=== PATIENT | female | born 1940 ===

== ENCOUNTER 2019-01-03 00:03 | Inpatient (IN) | payer MEDICARE, MEDICAID ==
--- NOTE | 2019-01-03 00:10 | ED PDOC ---
Psych Transfer Clearance - Clearance Statement Clearance Statement: Reviewed vital signs, lab results and transfer papers. Patient clinically stable for psychiatric admission.
[2019-01-03 00:14] VITALS: BMI 21.0
[2019-01-03] MEDS ORDERED: Bismuth Subsalicylate 262 mg/15 ml Sus (240 ml) PO PRN (00:29)
[2019-01-03] MEDS ORDERED: Alum-Mag Hydrox-Simethicone Susp (30 mL) PO PRN (00:29)
[2019-01-03] MEDS ORDERED: Magnesium Hydroxide Susp 30 ml UD PO PRN (00:29)
--- NOTE | 2019-01-03 00:37 | PCM.BM ---
<CatieCarson - Last Filed: 01/03/19 00:34> Treatment Plan Problems - Problems identified on initial assessmt Social Isolation Date Initiated: 01/03/19 Time Initiated: 00:35 Assessment reference: NA Status: Active Self Care Defecit Date Initiated: 01/03/19 Time Initiated: 00:35 Assessment reference: NA Status: Active Hopelessness/Helplessness Date Initiated: 01/03/19 Time Initiated: 00:36 Assessment reference: NA Status: Active Altered Sleep Patterns Date Initiated: 01/03/19 Time Initiated: 00:36 Assessment reference: NA Status: Active Less than Optimal Nutrition Date Initiated: 01/03/19 Time Initiated: 00:36 Assessment reference: NA Status: Active Treatment assets and liabiliti Patient Assests: cooperative, ADL independent, negotiates basic needs Patient Liabilities: live alone, poor support system, relationship conflicts, medical problems, language/speech - Milieu Protocol Maintain good personal hygiene: daily Encourage regular showers, daily Remind patient to perform daily oral care, daily Assist patient to perform ADL's Maintain personal safety: every shift Educate patient to report safety concerns to staff, every shift Monitor environment for contraband/sharps Medication safety: Monitor for expected outcome, potential side effects: every shift, Assess barriers to learning: every shift, Assess readiness for medication education: every shift <Clarisse Peña - Last Filed: 01/03/19 11:36> - Diagnosis (1) Major depressive disorder Status: Acute Interventions: Medication management, Individual and group therapy, Psychoeducation 01/03/19 11:36 (2) Generalized anxiety disorder Status: Acute Interventions: Medication management, Individual and group therapy, Psychoeducation 01/03/19 11:36 <Elver King - Last Filed: 01/04/19 16:49> Family Contact Family involvement: Family/SO is involved Family contact: Patient agrees to contact, Family has been contacted by patient, Telephone contact initiated by staff Family contact name: Angela Arroyo - Daughter Family contacted how many times per week?: 2 Family contact comment: Supervisor Adult Education spoke with pt's daughter, Angela Arroyo [phone], to give her updates on pt care. Supervisor Adult Education explained medication changes and that memory deficits were found during psych testing. Supervisor Adult Education provided education on memory loss and the addition of Aricept. Angela explained that she calls pt every day and that her and her siblings attempt to be there for pt but pt will often complain that they are in her way. Angela asked if more homecare hours can be provided and business writer explained process and that a script will be sent over. Angela asked that Dr. Peña call her on 01/07/19 and she reported that she and other children will visit pt on 01/05 and bring clothes. - Goals for Treatment Patient goals for treatment: Pt reported she would like to be placed on medicatins to better manage her anxiety and depression. Pt would like staff to petition for more homecare hours. Discharge/Continuing Care - Education Needs Education Needs: Family Medication, Family Diagnosis/Disease Process, Family Coping Skills, Family Community resources, Family Aftercare Safety Plan, Patient Medication, Patient Diagnosis/Disease Process, Patient Coping Skills, Patient Community resources, Patient Aftercare Safety Plan - Discharge Discharge Criteria: Tolerates medication w/o severe side effects, Free of Suicidal thoughts, Ability to care for self, Reduction of target symptoms Discharge to:: Home - Treatment Team Participation Patient/Family/SO Statement: 01/04/19 16:45 Pt seen in treatment team on 01/04/19. Pt reported she feels a "little better." Pt verbalized increased depression and anxiety over the last several months due to loneliness and abandonment by her children. Pt reported that she needs more help at home and only has a homemaker for 2 hours. Pt seen by Dr. Moe and memory issues were noted. This was discussed with pt and pt will be started on Aricept. Pt was tearful throughout the assessment. Pt denied current SI/HI and AVT hallucinations. Pt is oriented X4. Discussed with Family/SO: Yes Was Patient/Family/SO present at Treatment Team Meeting: Yes
[2019-01-03 06:45] LABS: HEMOGLOBIN 13.6 g/dL (12.0-16.0); MEAN CELL VOLUME 92.1 fl (81.0-99.0); MEAN CORPUSCULAR HEMOGLOBIN 30.9 pg (27.0-31.0); MEAN CORPUSCULAR HGB CONC 33.6 g/dL (33.0-37.0); RBC 4.39 Mil/uL (3.80-5.20); RED CELL DISTRIBUTION WIDTH 14.2 % (11.5-14.5); WHITE BLOOD COUNT 5.2 K/uL (4.8-10.8)
[2019-01-03 06:52] LABS: ALB/GLOB RATIO 1.3 (1.0-2.1); ALBUMIN 4.6 g/dL (3.5-5.0); ALT/SGPT 24 U/L (9-52); AST/SGOT 27 U/L (14-36); BLOOD UREA NITROGEN 13 mg/dl (7-17); CALCIUM 9.8 mg/dL (8.4-10.2); GFR NON-AFRICAN AMERICAN > 60; HDL CHOLESTEROL 76 MG/DL (30-70)
[2019-01-03 07:04] LABS: LDL CHOLESTEROL 126 mg/dL (0-129)
[2019-01-03 07:09] LABS: IRON 83 ug/dL (37-170)
[2019-01-03 07:19] LABS: % IRON SATURATION 30 % (20-55); TOTAL IRON BINDING CAPACITY 280 ug/dL (250-450)
[2019-01-03 07:27] LABS: FERRITIN 45.3 ng/Ml (11.1-264.0)
--- NOTE | 2019-01-03 11:31 | PCM.PSYCH ---
Initial Psychiatric Evaluation - Initial Psychiatric Evaluation Type of Admission: Voluntary Legal Status: Capacity Chief Complaint (in patient's own words): Depression/Anxiety Patient's Reaction to Hospitalization: HPI: 78 yo female w/ h/o depression and anxiety, presents w/ worsening depression, worsening anxiety, low energy, poor concentration, memory loss, excessive crying, poor sleep/appetite. She denies acute AH/VH/SI/HI. PPHx: History of depression and anxiety; h/o of prior psychiatric admissions, but patient is a poor historian; no current outpatient psychiatric treatment PMHx: HLD, Constipation, GERD ALL: NKDA SHx: From NH; +7 children; no drugs/etoh/cig FHx: Sister w/ depression Current Medications: Active Medications Generic Name Dose Route Start Last Admin Trade Name Freq PRN Reason Stop Dose Admin Acetaminophen 650 mg 01/03/19 00:29 Tylenol 325mg Tab PO Q4 PRN Pain, moderate (4-7) Al Hydrox/Mg Hydrox/Simethicone 30 ml 01/03/19 00:29 Maalox Plus 30 Ml PO Q4 PRN Dyspepsia Baclofen 10 mg 01/03/19 11:23 Lioresal PO DAILY PRN Muscle spasm Bismuth Subsalicylate 524 mg 01/03/19 00:29 Pepto-Bismol PO Q4 PRN Diarrhea Home Med 20 mg 01/03/19 17:00 Omeprazole [Omeprazole] PO BID [facility] Lorazepam 0.5 mg 01/03/19 00:29 01/03/19 01:10 Ativan PO 01/17/19 00:30 0.5 mg HS PRN Administration Insomnia Lorazepam 0.5 mg 01/03/19 00:29 Ativan PO 01/17/19 00:30 Q6 PRN Anixety/Agitation Magnesium Hydroxide 30 ml 01/03/19 00:29 Milk Of Magnesia PO HS PRN Constipation Past Psychiatric History - Past Psychiatric History Previous Treatment History: Inpatient Pertinent Medical Hx (Current Medical&Sleep Prob, Allergies): Allergies Allergy/AdvReac Type Severity Reaction Status Date / Time No Known Allergies Allergy Verified 06/13/15 16:32 Rosuvastatin Calcium [Crestor] 20 mg PO HS 05/04/15 Zolpidem Tartrate [Ambien] 10 mg PO HS 05/04/15 Mirtazapine [Remeron] 15 mg PO HS #0 tab 06/19/15 clonazePAM [Klonopin] 0.5 mg PO TID #0 tab 06/19/15 traZODone [Desyrel] 100 mg PO HS #0 tab 06/19/15 Levocetirizine Dihydrochloride [Xyzal] 5 mg PO DAILY 06/06/17 Lorazepam [Ativan] 0.5 mg PO BID 06/06/17 Nitrofurantoin Macrocrystals [Macrobid] 100 mg PO BID #20 cap 06/06/17 Omeprazole 20 mg PO BID 06/06/17 Review of Systems - Psychiatric Psychiatric: As Per HPI, Abnormal Sleep Pattern, Anhedonia, Anxiety, Change in Appetite, Depression, Difficulty Concentrating, Hopelessness, Irritability, Memory Loss Mental Status Examination - Personal Presentation Personal Presentation: Looks stated age - Affect Affect: Constricted, Depressed - Motor Activity Motor Activity: Calm - Reliability in Providing Information Reliability in Providing Information: Poor, due to cognitve impairment - Speech Speech: Coherent - Mood Mood: Depressed, Anxious - Formal Thought Process Formal Thought Process: No Impairment - Hallucinations/Delusions Additional comments: No AH/VH/paranoia - Obsessions/Compulsions Obsessions: No Compulsions: No - Cognitive Functions Orientation: Person, Place, Situation, Time Sensorium: Alert Judgement: Intact, as evidence by: Insight regarding need for hospitalization Memory: Recent intact, as evidence by: Ability to recall events of the day - Risk Risk: Diminished functioning - Strength & Assets Inventory Strength & Assets Inventory: Family support, Cooperative - Limitations Limitations: Living alone, Decreased memory, recent DSM 5 DX - DSM 5 DSM 5 Diagnosis: Major Depressive Disorder; Generalized Anxiety Disorder; r/o Major Neurocognitive Disorder - Recommended/Plan of Treatment Treatment Recommendations and Plan of Treatment: Major Depressive Disorder; Generalized Anxiety Disorder; r/o Major Neurocognitive Disorder -Admit to psychiatry unit -Individual and group therapy -Psychoeducation -Medicine consult -Start Remeron 7.5 mg PO HS -Ativan 0.5 mg PO PRN anxiety -Disposition planning Projected ELOS: 5-8 days Discharge Plan and Discharge Criteria: Discharge when patient is psychiatrically stable - Smoking Cessation Smoking Cessation Initiated: No Reason for not providing: Patient does not smoke
--- NOTE | 2019-01-03 11:53 | CP.PCM.CON ---
<Nyla Gutiérrez - Last Filed: 01/03/19 13:12> History of Present Illness - History of Present Illness History of Present Illness: Medicine consult note 78 yo female with history of depression, anxiety, chronic constipation, HLD and GERD admitted to [facility] for Major Depressive Disorder and Generalized Anxiety Disorder. Patient is a poor historian. She reports she was brought in because she has severe panic attacks and needed to be hospitalized. She denies any other complaints. Denies chest pain, dypsnea, nausea, vomiting, abdominal pain, diarrhea, dysuria, frequency, urgency. Denies SI/HI. ROS: negative except for stated above in HPI. Medical history: depression, anxiety, HLD, Constipation, GERD Allergies: NKDA Family history: Sister with anxiety and depression. Father and brother from Lung cancer (unknown age of diagnosis or whether they were smokers). Social history: Denies alcohol use, smoking history or illicit drug use. Review of Systems - Constitutional Constitutional: absent: Chills, Fatigue, Fever, Weight Loss - Cardiovascular Cardiovascular: absent: Chest Pain, Chest Pain at Rest, Chest Pain with Activity, Dyspnea, Leg Edema - Respiratory Respiratory: absent: Cough, Dyspnea, Dyspnea on Exertion, Wheezing, Chest Congestion - Gastrointestinal Gastrointestinal: Constipation (chronic constipation (last BM this morning)). absent: Abdominal Pain, Change in Bowel Habits, Diarrhea, Nausea, Vomiting - Genitourinary Genitourinary: absent: Dysuria, Nocturia, Urinary Incontinence, Urinary Frequency, Urinary Urgency Past Patient History - Infectious Disease Hx of Infectious Diseases: None - Past Medical History & Family History Past Medical History?: Yes - Past Social History Smoking Status: Never Smoked - CARDIAC Hx Hypercholesterolemia: Yes Hx Hypertension: No - PULMONARY Hx Tuberculosis: No - NEUROLOGICAL Hx Neurological Disorder: No Hx Seizures: No - HEENT Hx HEENT Problems: No - RENAL Hx Chronic Kidney Disease: No - ENDOCRINE/METABOLIC Hx Endocrine Disorders: No - HEMATOLOGICAL/ONCOLOGICAL Hx Blood Disorders: No Hx Anemia: No Hx Human Immunodeficiency Virus (HIV): No - INTEGUMENTARY Hx Dermatological Problems: No - MUSCULOSKELETAL/RHEUMATOLOGICAL Hx Musculoskeletal Disorders: Yes Hx Falls: No Hx Osteoporosis: Yes - GASTROINTESTINAL Hx Gastrointestinal Disorders: Yes Hx Constipation: Yes Hx Diverticulitis: Yes Hx Gastritis: Yes - GENITOURINARY/GYNECOLOGICAL Hx Genitourinary Disorders: No Hx Sexually Transmitted Disorders: No - PSYCHIATRIC Hx Anxiety: Yes Hx Depression: Yes Hx Physical Abuse: No Hx Sexual Abuse: No Hx Substance Use: No - SURGICAL HISTORY Hx Surgeries: Yes Hx Cholecystectomy: Yes Hx Tonsillectomy: Yes - ANESTHESIA Hx Anesthesia: Yes Hx Anesthesia Reactions: No Meds Allergies/Adverse Reactions: Allergies Allergy/AdvReac Type Severity Reaction Status Date / Time No Known Allergies Allergy Verified 06/13/15 16:32 - Medications Medications: Current Medications Acetaminophen (Tylenol 325mg Tab) 650 mg PO Q4 PRN PRN Reason: Pain, moderate (4-7) Al Hydrox/Mg Hydrox/Simethicone (Maalox Plus 30 Ml) 30 ml PO Q4 PRN PRN Reason: Dyspepsia Baclofen (Lioresal) 10 mg PO DAILY PRN PRN Reason: Muscle spasm Bismuth Subsalicylate (Pepto-Bismol) 524 mg PO Q4 PRN PRN Reason: Diarrhea Lorazepam (Ativan) 0.5 mg PO HS PRN PRN Reason: Insomnia Stop: 01/17/19 00:30 Last Admin: 01/03/19 01:10 Dose: 0.5 mg Lorazepam (Ativan) 0.5 mg PO Q6 PRN PRN Reason: Anixety/Agitation Stop: 01/17/19 00:30 Magnesium Hydroxide (Milk Of Magnesia) 30 ml PO HS PRN PRN Reason: Constipation Mirtazapine (Remeron) 7.5 mg PO HS EDWARD Pantoprazole Sodium (Protonix Ec Tab) 40 mg PO DAILY [facility] Physical Exam - Constitutional Appears: Non-toxic, No Acute Distress - Eye Exam Eye Exam: Normal appearance - ENT Exam ENT Exam: Mucous Membranes Moist - Respiratory Exam Respiratory Exam: Clear to Auscultation Bilateral, NORMAL BREATHING PATTERN. absent: Accessory Muscle Use, Chest Wall Tenderness, Decreased Breath Sounds, Prolonged Expiratory Phase, Rales, Rhonchi, Wheezes, Respiratory Distress, Stridor - Cardiovascular Exam Cardiovascular Exam: REGULAR RHYTHM, +S1, +S2 - GI/Abdominal Exam GI & Abdominal Exam: Normal Bowel Sounds, Soft. absent: Diminished Bowel Sounds, Distended, Firm, Mass, Rebound, Rigid, Tenderness - Back Exam Back exam: NORMAL INSPECTION - Neurological Exam Neurological exam: Alert, Oriented x3 - Psychiatric Exam Psychiatric exam: Normal Affect - Skin Skin Exam: Dry, Intact, Normal Color, Warm Results - Vital Signs Recent Vital Signs: Last Vital Signs Temp 98.1 F 01/03/19 06:00 Pulse 89 01/03/19 06:00 Resp 18 01/03/19 06:00 BP 131/75 01/03/19 06:00 Pulse Ox 99 01/03/19 00:05 - Labs Result Diagrams: 01/03/19 06:36 01/03/19 06:36 Labs: Laboratory Results - last 24 hr 01/03/19 01/03/19 01/03/19 06:36 06:36 06:36 WBC 5.2 RBC 4.39 Hgb 13.6 Hct 40.4 MCV 92.1 MCH 30.9 MCHC 33.6 RDW 14.2 Plt Count 249 Sodium 141 Potassium 4.2 Chloride 103 Carbon Dioxide 28 Anion Gap 14 BUN 13 Creatinine 0.6 L Est GFR ( Amer) > 60 Est GFR (Non-Af Amer) > 60 Random Glucose 83 Hemoglobin A1c Calcium 9.8 Iron 83 TIBC 280 % Saturation 30 Ferritin 45.3 Total Bilirubin 0.7 AST 27 ALT 24 Alkaline Phosphatase 126 Total Protein 8.2 Albumin 4.6 Globulin 3.6 Albumin/Globulin Ratio 1.3 Triglycerides 68 Cholesterol 235 H LDL Cholesterol Direct 126 HDL Cholesterol 76 H Vitamin B12 317 Free T4 Thyroxine (T4) 11.5 H TSH 3rd Generation 3.14 01/03/19 01/03/19 06:36 06:36 WBC RBC Hgb Hct MCV MCH MCHC RDW Plt Count Sodium Potassium Chloride Carbon Dioxide Anion Gap BUN Creatinine Est GFR ( Amer) Est GFR (Non-Af Amer) Random Glucose Hemoglobin A1c 5.6 Calcium Iron TIBC % Saturation Ferritin Total Bilirubin AST ALT Alkaline Phosphatase Total Protein Albumin Globulin Albumin/Globulin Ratio Triglycerides Cholesterol LDL Cholesterol Direct HDL Cholesterol Vitamin B12 Free T4 1.28 Thyroxine (T4) TSH 3rd Generation Assessment & Plan - Assessment and Plan (Free Text) Assessment: 78 yo female with history of depression, anxiety, chronic constipation, HLD and GERD admitted to [facility] for Major Depressive Disorder and Generalized Anxiety Disorder. Plan: Major Depressive Disorder; Generalized Anxiety Disorder - Hemodynamically stable - medically stable - C/W home medications - Continue with psychiatric management. <Martha Abarca - Last Filed: 01/04/19 18:52> Meds - Medications Medications: Current Medications Acetaminophen (Tylenol 325mg Tab) 650 mg PO Q4 PRN PRN Reason: Pain, moderate (4-7) Al Hydrox/Mg Hydrox/Simethicone (Maalox Plus 30 Ml) 30 ml PO Q4 PRN PRN Reason: Dyspepsia Baclofen (Lioresal) 10 mg PO DAILY PRN PRN Reason: Muscle spasm Bismuth Subsalicylate (Pepto-Bismol) 524 mg PO Q4 PRN PRN Reason: Diarrhea Donepezil HCl (Aricept) 5 mg PO HS [facility] Lorazepam (Ativan) 0.5 mg PO HS PRN PRN Reason: Insomnia Stop: 01/17/19 00:30 Last Admin: 01/03/19 01:10 Dose: 0.5 mg Lorazepam (Ativan) 0.5 mg PO Q6 PRN PRN Reason: Anixety/Agitation Stop: 01/17/19 00:30 Magnesium Hydroxide (Milk Of Magnesia) 30 ml PO HS PRN PRN Reason: Constipation Mirtazapine (Remeron) 7.5 mg PO [facility] Last Admin: 01/03/19 21:25 Dose: 7.5 mg Pantoprazole Sodium (Protonix Ec Tab) 40 mg PO DAILY [facility] Last Admin: 01/04/19 08:16 Dose: 40 mg Senna/Docusate Sodium (Senokot S 50 Mg-8.6 Mg) 1 tab PO [facility] Results - Vital Signs Recent Vital Signs: Last Vital Signs Temp 97.6 F 01/04/19 15:56 Pulse 89 01/04/19 15:56 Resp 18 01/04/19 15:56 BP 115/68 01/04/19 15:56 Pulse Ox 99 01/03/19 00:05 - Labs Result Diagrams: 01/03/19 06:36 01/03/19 06:36 Labs: Laboratory Results - last 24 hr 01/04/19 07:00 Urine Color Straw Urine Clarity Clear Urine pH 6.0 Ur Specific [place] 1.009 Urine Protein Negative Urine Glucose (UA) Neg Urine Ketones Negative Urine Blood Small Urine Nitrate Negative Urine Bilirubin Negative Urine Urobilinogen 0.2-1.0 Ur Leukocyte Esterase Trace Urine RBC (Auto) 4 H Urine Microscopic WBC 5 Ur Squamous Epith Cells < 1 Urine Bacteria Rare Attending/Attestation - Attestation I have personally seen and examined this patient.: Yes I have fully participated in the care of the patient.: Yes I have reviewed all pertinent clinical information: Yes Notes (Text): Agree with findings and plan as above.
[2019-01-03 12:20] LABS: FOLATE > 20.0 ng/mL
[2019-01-03] MEDS: Pantoprazole 40 mg EC Tab PO SCH (17:07)
[2019-01-04 08:12] LABS: SQUAMOUS EPITHIAL < 1 /hpf (0-5); URINE BACTERIA RARE (<OCC); URINE BILIRUBIN NEGATIVE (NEGATIVE); URINE BLOOD SMALL (NEGATIVE); URINE CLARITY CLEAR (Clear); URINE COLOR STRAW (YELLOW); URINE GLUCOSE (UA) NEG (NEGATIVE); URINE LEUKOCYTE ESTERASE TRACE Leu/uL (Negative); URINE PROTEIN NEGATIVE (NEGATIVE); URINE UROBILINOGEN 0.2-1.0 mg/dL (0.2-1.0)
[2019-01-04] MEDS: Pantoprazole 40 mg EC Tab PO SCH (08:16)
--- NOTE | 2019-01-04 09:38 | CP.PCM.CON ---
History of Present Illness - History of Present Illness History of Present Illness: Pt is a 78 year old female admitted to [facility] and referred to the pattern chart writer for evaluation. On the Dementia Rating Scale, pt scored an overall score of 111. Pt scored within normal limits on Attention, and Construction tasks. Pt's Conceptualization, Memory, and Initiation skills all fell in the Deficient Range. With improvement in her psychiatric status, pt's performance is likely to improve to some degree. Deficits noted on this evaluation Overall 111 Attention 34 within normal limits Construction 5 within normal limits Conceptualization 31 deficient Memory 14 deficient Initation 27 deficient Past Patient History - Infectious Disease Hx of Infectious Diseases: None - Past Medical History & Family History Past Medical History?: Yes - Past Social History Smoking Status: Never Smoked - CARDIAC Hx Hypercholesterolemia: Yes Hx Hypertension: No - PULMONARY Hx Tuberculosis: No - NEUROLOGICAL Hx Neurological Disorder: No Hx Seizures: No - HEENT Hx HEENT Problems: No - RENAL Hx Chronic Kidney Disease: No - ENDOCRINE/METABOLIC Hx Endocrine Disorders: No - HEMATOLOGICAL/ONCOLOGICAL Hx Blood Disorders: No Hx Anemia: No Hx Human Immunodeficiency Virus (HIV): No - INTEGUMENTARY Hx Dermatological Problems: No - MUSCULOSKELETAL/RHEUMATOLOGICAL Hx Musculoskeletal Disorders: Yes Hx Falls: No Hx Osteoporosis: Yes - GASTROINTESTINAL Hx Gastrointestinal Disorders: Yes Hx Constipation: Yes Hx Diverticulitis: Yes Hx Gastritis: Yes - GENITOURINARY/GYNECOLOGICAL Hx Genitourinary Disorders: No Hx Sexually Transmitted Disorders: No - PSYCHIATRIC Hx Anxiety: Yes Hx Depression: Yes Hx Physical Abuse: No Hx Sexual Abuse: No Hx Substance Use: No - SURGICAL HISTORY Hx Surgeries: Yes Hx Cholecystectomy: Yes Hx Tonsillectomy: Yes - ANESTHESIA Hx Anesthesia: Yes Hx Anesthesia Reactions: No Meds Allergies/Adverse Reactions: Allergies Allergy/AdvReac Type Severity Reaction Status Date / Time No Known Allergies Allergy Verified 06/13/15 16:32 - Medications Medications: Current Medications Acetaminophen (Tylenol 325mg Tab) 650 mg PO Q4 PRN PRN Reason: Pain, moderate (4-7) Al Hydrox/Mg Hydrox/Simethicone (Maalox Plus 30 Ml) 30 ml PO Q4 PRN PRN Reason: Dyspepsia Baclofen (Lioresal) 10 mg PO DAILY PRN PRN Reason: Muscle spasm Bismuth Subsalicylate (Pepto-Bismol) 524 mg PO Q4 PRN PRN Reason: Diarrhea Lorazepam (Ativan) 0.5 mg PO HS PRN PRN Reason: Insomnia Stop: 01/17/19 00:30 Last Admin: 01/03/19 01:10 Dose: 0.5 mg Lorazepam (Ativan) 0.5 mg PO Q6 PRN PRN Reason: Anixety/Agitation Stop: 01/17/19 00:30 Magnesium Hydroxide (Milk Of Magnesia) 30 ml PO HS PRN PRN Reason: Constipation Mirtazapine (Remeron) 7.5 mg PO HS [facility] Last Admin: 01/03/19 21:25 Dose: 7.5 mg Pantoprazole Sodium (Protonix Ec Tab) 40 mg PO DAILY [facility] Last Admin: 01/04/19 08:16 Dose: 40 mg Results - Vital Signs Recent Vital Signs: Last Vital Signs Temp 97.1 F L 01/04/19 06:00 Pulse 76 01/04/19 06:00 Resp 19 01/04/19 06:00 BP 132/74 01/04/19 06:00 Pulse Ox 99 01/03/19 00:05 - Labs Result Diagrams: 01/03/19 06:36 01/03/19 06:36 Labs: Laboratory Results - last 24 hr 01/03/19 01/03/19 01/03/19 06:36 06:36 06:36 Hemoglobin A1c 5.6 Folate > 20.0 Urine Color Urine Clarity Urine pH Ur Specific [place] Urine Protein Urine Glucose (UA) Urine Ketones Urine Blood Urine Nitrate Urine Bilirubin Urine Urobilinogen Ur Leukocyte Esterase Urine RBC (Auto) Urine Microscopic WBC Ur Squamous Epith Cells Urine Bacteria RPR Nonreactive 01/04/19 07:00 Hemoglobin A1c Folate Urine Color Straw Urine Clarity Clear Urine pH 6.0 Ur Specific [place] 1.009 Urine Protein Negative Urine Glucose (UA) Neg Urine Ketones Negative Urine Blood Small Urine Nitrate Negative Urine Bilirubin Negative Urine Urobilinogen 0.2-1.0 Ur Leukocyte Esterase Trace Urine RBC (Auto) 4 H Urine Microscopic WBC 5 Ur Squamous Epith Cells < 1 Urine Bacteria Rare RPR
--- NOTE | 2019-01-04 10:23 | PCM.PYCHPN ---
Psychiatric Progress Note - Psychiatric Progress Note Patient seen today, length of contact: Pt evaluated, case discussed w/ team, chart reviewed Patient Chief Complaint: Depression/Anxiety Problems Identified/Issues Discussed: Patient continues to be depressed, anxious and intermittently feels hopeless. She was tearful on evaluation. She realizes that she has memory deficits. Medication Change: Yes (Start Aricept) Medical Record Reviewed: Yes Consults ordered or reviewed: Medicine consult Psychology consult Pt is a 78 year old female admitted to [facility] and referred to the food writer for evaluation. On the Dementia Rating Scale, pt scored an overall score of 111. Pt scored within normal limits on Attention, and Construction tasks. Pt's Conceptualization, Memory, and Initiation skills all fell in the Deficient Range. With improvement in her psychiatric status, pt's performance is likely to improve to some degree. Deficits noted on this evaluation Overall 111 Attention 34 within normal limits Construction 5 within normal limits Conceptualization 31 deficient Memory 14 deficient Initation 27 deficient Mental Status Examination - Cognitive Function Orientation: Person, Place, Situation, Time Memory: Impaired - Mood Mood: Depressed, Anxious - Affect Affect: Constricted, Depressed - Formal Thought Process Formal Thought Process: No Impairment Psychotic Thoughts and Behaviors: No AH/VH/paranoia/delusions - Suicidal Ideation Suicidal Ideation: No - Homicidal Ideation Homicidal Ideation: No Goal/Treatment Plan - Goal/Treatment Plan Need for Continued Stay: Severe depression anxiety, Severe functional impairment Progress Toward Problem(s) and Goals/Treatment Plan: Major Depressive Disorder; Generalized Anxiety Disorder; Major Neurocognitive Disorder -Individual and group therapy -Psychoeducation -Medicine consult -Continue Remeron 7.5 mg PO HS -Start Aricept 5 mg PO HS -Ativan 0.5 mg PO PRN anxiety -Disposition planning Estimated Date of D/C: 01/08/19
[2019-01-04] MEDS ORDERED: Bisacodyl 5mg EC Tab PO ONE (11:03)
[2019-01-04] MEDS: Docusate-Senna 50 mg-8.6 mg Tab PO SCH (22:02)
[2019-01-05] MEDS: Pantoprazole 40 mg EC Tab PO SCH (09:13)
--- NOTE | 2019-01-05 12:37 | PCM.PYCHPN ---
Psychiatric Progress Note - Psychiatric Progress Note Patient seen today, length of contact: Pt evaluated, case discussed w/ team, chart reviewed Patient Chief Complaint: was feeling nervous/depressed come changes in memory Problems Identified/Issues Discussed: alteration in mood alteration in cognition alteration in self care Medical Problems: per chart Diagnostic Results: per psychiatry, medicine, nursing, social work, recreational therapy DSM 5 Symptoms Update: some improvement mood started on aricept some impairment in memory Medication Change: No Medical Record Reviewed: Yes Consults ordered or reviewed: hospitalist, dr jaimes/psychologist Mental Status Examination - Cognitive Function Orientation: Person, Place, Situation, Time Memory: Impaired Decription of patient's judgement and insights: impaired - Mood Mood: Depressed, Anxious - Affect Affect: Constricted, Depressed - Formal Thought Process Formal Thought Process: No Impairment - Suicidal Ideation Suicidal Ideation: No - Homicidal Ideation Homicidal Ideation: No Goal/Treatment Plan - Goal/Treatment Plan Need for Continued Stay: Severe depression anxiety, Severe functional impairment Progress Toward Problem(s) and Goals/Treatment Plan: inpt milieu vital signs/clinical observation per protocol and per clinical status discharge planning in progress Estimated Date of D/C: 01/08/19 - Smoking Cessation Smoking Cessation Initiated: No Reason for not providing: pt defers
[2019-01-05] MEDS: Docusate-Senna 50 mg-8.6 mg Tab PO SCH (21:21)
[2019-01-06] MEDS: Pantoprazole 40 mg EC Tab PO SCH (09:03)
[2019-01-06 16:45] VITALS: O2SAT 98
--- NOTE | 2019-01-06 17:14 | PCM.PYCHPN ---
Psychiatric Progress Note - Psychiatric Progress Note Patient seen today, length of contact: Pt evaluated, case discussed w/ team, chart reviewed Patient Chief Complaint: was feeling nervous/depressed come changes in memory Problems Identified/Issues Discussed: alteration in mood alteration in cognition alteration in self care Medical Problems: per chart Diagnostic Results: per psychiatry, medicine, nursing, social work, recreational therapy DSM 5 Symptoms Update: improving mood denie side effects medication Medication Change: No Medical Record Reviewed: Yes Consults ordered or reviewed: pt being followed by medical team Mental Status Examination - Cognitive Function Orientation: Person, Place, Situation, Time Memory: Impaired Decription of patient's judgement and insights: impaired - Mood Mood: Depressed, Anxious - Affect Affect: Constricted, Depressed - Formal Thought Process Formal Thought Process: No Impairment - Suicidal Ideation Suicidal Ideation: No - Homicidal Ideation Homicidal Ideation: No Goal/Treatment Plan - Goal/Treatment Plan Need for Continued Stay: Severe depression anxiety, Severe functional impairment Progress Toward Problem(s) and Goals/Treatment Plan: inpt milieu vital signs/clinical observation per protocol and per clinical status adjust meds per clinical status start namenda 5mg po 1700 discharge planning in progress Estimated Date of D/C: 01/08/19 - Smoking Cessation Smoking Cessation Initiated: No
[2019-01-06] MEDS: Docusate-Senna 50 mg-8.6 mg Tab PO SCH (21:18)
[2019-01-07] MEDS: Pantoprazole 40 mg EC Tab PO SCH (08:57)
--- NOTE | 2019-01-07 11:27 | PCM.PYCHPN ---
Psychiatric Progress Note - Psychiatric Progress Note Patient seen today, length of contact: Pt evaluated, case discussed w/ team, chart reviewed Patient Chief Complaint: Depression/Anxiety Problems Identified/Issues Discussed: Patient reports that she feels less anxious and depressed. She feels more hopeful. She reports improved sleep/appetite. Obstetric Anaesthetist spoke with patient's daughter Angela Arroyo ([phone]); Treatment plan and medications reviewed. Psychoeducation provided on dementia. Medication Change: No Medical Record Reviewed: Yes Consults ordered or reviewed: Medicine consult Psychology consult Pt is a 78 year old female admitted to [facility] and referred to the telegraphic typewriter operator chief for evaluation. On the Dementia Rating Scale, pt scored an overall score of 111. Pt scored within normal limits on Attention, and Construction tasks. Pt's Conceptualization, Memory, and Initiation skills all fell in the Deficient Range. With improvement in her psychiatric status, pt's performance is likely to improve to some degree. Deficits noted on this evaluation Overall 111 Attention 34 within normal limits Construction 5 within normal limits Conceptualization 31 deficient Memory 14 deficient Initation 27 deficient Mental Status Examination - Cognitive Function Orientation: Person, Place, Situation, Time Memory: Impaired Decription of patient's judgement and insights: Improving I/J - Mood Mood: Anxious - Affect Affect: Constricted - Speech Speech: Appropriate - Formal Thought Process Formal Thought Process: No Impairment Psychotic Thoughts and Behaviors: No AH/VH/paranoia/delusions - Suicidal Ideation Suicidal Ideation: No - Homicidal Ideation Homicidal Ideation: No Goal/Treatment Plan - Goal/Treatment Plan Need for Continued Stay: Severe depression anxiety Progress Toward Problem(s) and Goals/Treatment Plan: Major Depressive Disorder; Generalized Anxiety Disorder; Major Neurocognitive Disorder -Individual and group therapy -Psychoeducation -Medicine consult -Continue Remeron, Aricept and Namenda -Disposition planning- likely discharge tomorrow as patient is improving clinically Estimated Date of D/C: 01/08/19
[2019-01-07] MEDS: Docusate-Senna 50 mg-8.6 mg Tab PO SCH (21:09)
[2019-01-08 06:07] VITALS: RESP 18
[2019-01-08] MEDS: Pantoprazole 40 mg EC Tab PO SCH (08:38)
--- NOTE | 2019-01-08 12:15 | PCM.PYCHDC ---
Mental Status Examination - Mental Status Examination Orientation: Person, Place, Situation, Time Memory: Impaired Mood: Neutral Affect: Broad Speech: Appropriate Attention: WNL Concentration: WNL Association: WNL Fund of Knowledge: WNL Formal Thought Process: No Impairment Description of patient's judgement and insight: Fair I/J Psychotic Thoughts and Behaviors: No AH/VH/paranoia/delusions Suicidal Ideation: No Current Homicidal Ideation?: No Discharge Summary - Discharge Note Reason for Hospitalization: HPI: 78 yo female w/ h/o depression and anxiety, presents w/ worsening depression, worsening anxiety, low energy, poor concentration, memory loss, excessive crying, poor sleep/appetite. She denies acute AH/VH/SI/HI. PPHx: History of depression and anxiety; h/o of prior psychiatric admissions, but patient is a poor historian; no current outpatient psychiatric treatment PMHx: HLD, Constipation, GERD ALL: NKDA SHx: From [place]; +7 children; no drugs/etoh/cig FHx: Sister w/ depression Consultations:: List each consultation separately and include: 1. Reason for request. 2. Findings. 3. Follow-up Consultations: Medicine consult Psychology consult Pt is a 78 year old female admitted to [facility] and referred to the newspaper writer for evaluation. On the Dementia Rating Scale, pt scored an overall score of 111. Pt scored within normal limits on Attention, and Construction tasks. Pt's Conceptualization, Memory, and Initiation skills all fell in the Deficient Range. With improvement in her psychiatric status, pt's performance is likely to improve to some degree. Deficits noted on this evaluation Overall 111 Attention 34 within normal limits Construction 5 within normal limits Conceptualization 31 deficient Memory 14 deficient Initation 27 deficient Summary of Hospital Course include:: 1. Description of specific treatment plan utilized for patients during their course of treatmen. 2. Summarize the time- course for resolution of acute symptoms and/or regressed behaviors. 3. Describe issues identified and worked on during hospitalization. 4. Describe medication utilized. 5. Describe medical problems identified and treated. 6. Reassessment of suicide risk Summary of Hospital Course: Patient was admitted to the psychiatry unit. Individual and group therapy were provided. Patient was stabilized on Remeron, Aricept and Namenda. Psychoeducation provided to the patient and her family. She denies acute depression/anxiety/AH/VH/SI/HI. She is psychiatrically stable for discharge at this time. - Diagnosis (1) Major depressive disorder Current Visit: Yes Status: Acute (2) Generalized anxiety disorder Current Visit: Yes Status: Acute - Final Diagnosis (DSM 5) Condition upon Discharge: STABLE DSM 5: Major Depressive Disorder; Generalized Anxiety Disorder; Major Neurocognitive Disorder Disposition: HOME/ ROUTINE Follow-up Treatment Plan: Discharge with outpatient follow-up Prescriptions/Medication Reconciliation: Donepezil [Aricept] 5 mg PO HS #30 tab Memantine [Namenda] 5 mg PO DAILY #30 tab Mirtazapine [Remeron] 7.5 mg PO HS #30 tab - Smoking Cessation Smoking Cessation Medication prescribed: No Reason for not providing: Not indicated - Antipsychotic Medications Pt discharged on 2 or more routine antipsychotic medications: No
[2019-01-08 16:33] VITALS: BP 124/78; PULSE 93; TEMP 98.5
== END 2019-01-08 06:40 | disposition home or self-care (01) | DRG 884 ==
LOC: H.ER 00:03 → H.STEP 00:10
PROVIDERS: ADMIT Psychiatry & Neurology Psychiatry; ATTEND Psychiatry & Neurology Psychiatry
PROC: GZHZZZZ Group Psychotherapy (ICD-10-PCS; principal; 2019-01-03)
PROC: GZ58ZZZ Individual Psychotherapy, Cognitive-Behavioral (ICD-10-PCS; 2019-01-03)
DX: F01.50 Vascular dementia, unspecified severity, without behavioral disturbance, psychotic disturbance, mood disturbance, and anxiety (principal); F32.9 Major depressive disorder, single episode, unspecified; F41.0 Panic disorder [episodic paroxysmal anxiety]; F41.1 Generalized anxiety disorder; K59.09 Other constipation; K21.9 Gastro-esophageal reflux disease without esophagitis; E78.5 Hyperlipidemia, unspecified; E78.00 Pure hypercholesterolemia, unspecified; M81.0 Age-related osteoporosis without current pathological fracture; K29.70 Gastritis, unspecified, without bleeding